=== PATIENT | female | born 1955 | race Caucasian/White ===

== ENCOUNTER 2016-10-30 07:13 | Emergency (ER) | payer OTHER ==
[~2016-10-30] VITALS: Ht 172.7 cm; Wt 115.7 kg
[~2016-10-30 07:13] MED LIST: AMLODIPINE BESYL5 M1 PO; ASPIR LOW81 MG PO; CIPROFLOXACIN HCL; CIPROFLOXACIN500 MG PO; COL100 PO; CYCLOBENZAPRINE5 MG PO; FLO4 PO; HYDROCHLOROTHIAZIDE; HYDROCODON; K10 PO; LAC PO; LIPITOR80 MG PO; LISINOPRIL40 MG PO; LOP50 PO; MAC100 PO; METOPROLOL SUCC25 M1 PO; MOTRIN800 MG PO; NITROSTAT0.4 MG SL; NOR10T PO; PHENAZOPYRIDIN200 M3 PO; PRI20 PO; ZES10 PO
[2016-10-30 07:55] LABS: CALCIUM 8.8 mg/dL (8.5-10.1); CARBON DIOXIDE 26.1 mmol/L (21-32); CREATININE SERUM 1.2 mg/dL (0.6-1.0); POTASSIUM SERUM 3.9 mmol/L (3.5-5.1)
[2016-10-30 08:00] LABS: ALBUMIN 3.7 g/dL (3.4-5.0); BILIRUBIN TOTAL 0.3 mg/dL (0.20-1.00); TOTAL PROTEIN, SERUM 7.5 g/dL (6.4-8.2)
[2016-10-30 08:05] LABS: BASOPHIL % 0.5 % (0-2); PLATELET COUNT 224 x10^3mcL (130-400)
[2016-10-30 08:13] LABS: RED CELL DISTRIBUTION WIDTH 14.6 % (11.5-14.5)
[2016-10-30 09:36] VITALS: BP 137/56
== END 2016-10-30 09:36 | disposition home or self-care (01) ==
LOC: ED 07:13
PROVIDERS: Emergency Medicine
DX: L03.116 Cellulitis of left lower limb (principal); I10 Essential (primary) hypertension; Z87.442 Personal history of urinary calculi; Z79.899 Other long term (current) drug therapy
CPT/HCPCS: J0295; J1885; J3490; Q0092

== ENCOUNTER 2019-10-03 04:09 | Emergency (ER) | payer OTHER ==
[~2019-10-03] VITALS: Ht 172.7 cm; Wt 115.7 kg
[2019-10-03 04:18] VITALS: Ht 172.7 cm; Wt 115.7 kg
[2019-10-03 06:21] VITALS: BP 143/49
== END 2019-10-03 06:22 | disposition home or self-care (01) ==
LOC: ED 04:09
DX: M25.551 Pain in right hip (principal); I10 Essential (primary) hypertension; Z98.890 Other specified postprocedural states
CPT/HCPCS: J1885; J2270; Q0162

== ENCOUNTER 2020-09-23 17:17 | Inpatient (IN) | payer OTHER ==
[~2020-09-23] VITALS: Ht 172.7 cm; Wt 115.7 kg
[2020-09-23 17:22] VITALS: Ht 172.7 cm; Wt 115.7 kg
[2020-09-23 18:35] LABS: UA SPECIFIC GRAVITY 1.025 (1.005-1.035); microscopic required? YES; urine erythrocyte TRACE (NEGATIVE)
[2020-09-23 18:37] LABS: BASOPHIL % 0.9 % (0.2-1.3); PLATELET COUNT 256 x10^3mcL (179-408)
[2020-09-23 18:38] LABS: RED CELL DISTRIBUTION WIDTH 14.9 % (12.3-17.7)
[2020-09-23 18:45] LABS: CALCIUM 9.5 mg/dL (8.5-10.1); CARBON DIOXIDE 24.5 mmol/L (21-32); CREATININE SERUM 1.2 mg/dL (0.6-1.0)
[2020-09-23 18:52] LABS: ALBUMIN 3.6 g/dL (3.4-5.0); BILIRUBIN TOTAL 0.3 mg/dL (0.20-1.00)
[2020-09-23 21:32] LABS: CHOLESTEROL/HDL RATIO 2.6
[2020-09-23 21:32] LABS: AMPHETAMINE QUAL UR NONE DETECTED (See below)
[2020-09-23 23:52] VITALS: BP 175/74
[2020-09-24] MEDS ORDERED: TOPROL XL25 MG PO (00:39)
[2020-09-24 05:43] VITALS: BP 140/51
[2020-09-24 07:23] LABS: BASOPHIL % 0.7 % (0.2-1.3); PLATELET COUNT 238 x10^3mcL (179-408)
[2020-09-24 07:33] LABS: CALCIUM 8.6 mg/dL (8.5-10.1); CARBON DIOXIDE 23.9 mmol/L (21-32); CREATININE SERUM 1.2 mg/dL (0.6-1.0); MAGNESIUM 1.6 mg/dL (1.8-2.4); PHOSPHOROUS 3.9 mg/dL (2.5-4.9); POTASSIUM SERUM 3.6 mmol/L (3.5-5.1)
[2020-09-24 07:34] LABS: RED CELL DISTRIBUTION WIDTH 14.6 % (12.3-17.7)
[2020-09-24 07:43] VITALS: BP 134/46
[2020-09-24 13:07] VITALS: BP 156/65
[2020-09-24 17:21] VITALS: BP 137/53
[2020-09-24 21:47] VITALS: BP 140/57
[2020-09-25 05:00] VITALS: BP 183/75
[2020-09-25 06:57] LABS: CALCIUM 9.4 mg/dL (8.5-10.1); CARBON DIOXIDE 24.3 mmol/L (21-32); CREATININE SERUM 1.1 mg/dL (0.6-1.0); MAGNESIUM 2.2 mg/dL (1.8-2.4); PHOSPHOROUS 2.7 mg/dL (2.5-4.9); POTASSIUM SERUM 4.4 mmol/L (3.5-5.1)
[2020-09-25 07:09] LABS: BASOPHIL % 0.2 % (0.2-1.3); PLATELET COUNT 245 x10^3mcL (179-408); RED CELL DISTRIBUTION WIDTH 14.9 % (12.3-17.7)
[2020-09-25 08:46] VITALS: BP 159/56
[2020-09-25 12:10] VITALS: BP 168/56
[2020-09-25 16:43] VITALS: BP 155/57
[2020-09-25 19:49] VITALS: BP 148/49
[2020-09-26 05:29] VITALS: BP 130/62
[2020-09-26 06:32] LABS: BASOPHIL % 0.4 % (0.2-1.3); PLATELET COUNT 223 x10^3mcL (179-408)
[2020-09-26 06:48] LABS: RED CELL DISTRIBUTION WIDTH 15.7 % (12.3-17.7)
[2020-09-26 06:57] LABS: CALCIUM 8.8 mg/dL (8.5-10.1); CARBON DIOXIDE 20.7 mmol/L (21-32); CREATININE SERUM 1.1 mg/dL (0.6-1.0); POTASSIUM SERUM 4.1 mmol/L (3.5-5.1)
[2020-09-26 08:33] VITALS: BP 153/54
[2020-09-26 11:30] VITALS: BP 104/50; BP 160/55
[2020-09-26 16:53] VITALS: BP 167/65
[2020-09-26 20:20] VITALS: BP 167/64
[2020-09-27 05:27] VITALS: BP 166/65
[2020-09-27 06:21] LABS: CALCIUM 8.5 mg/dL (8.5-10.1); CARBON DIOXIDE 22.6 mmol/L (21-32); CREATININE SERUM 1.1 mg/dL (0.6-1.0); POTASSIUM SERUM 3.8 mmol/L (3.5-5.1)
[2020-09-27 06:28] LABS: BASOPHIL % 0.8 % (0.2-1.3); PLATELET COUNT 197 x10^3mcL (179-408)
[2020-09-27 06:53] LABS: RED CELL DISTRIBUTION WIDTH 15.2 % (12.3-17.7)
[2020-09-27 08:26] VITALS: BP 169/63
[2020-09-27] MEDS ORDERED: CARVEDILOL12.5 M1 PO (11:08)
[2020-09-27] MEDS ORDERED: NOR5 PO (11:08)
[2020-09-27] MEDS ORDERED: ECO81 PO (11:08)
[2020-09-27] MEDS ORDERED: ZES20 PO (11:08)
[2020-09-27] MEDS ORDERED: PRI20 PO (11:09)
[2020-09-27] MEDS ORDERED: CIP500 PO (11:09)
[2020-09-27 11:59] VITALS: BP 162/67
[2020-09-27 13:43] VITALS: BP 169/65
== END 2020-09-27 15:10 | disposition home or self-care (01) | DRG 690 ==
LOC: ED 17:17 → DU 20:42 → MU 20:42 → DU 23:16 → MU 23:18 → DU 09-26 04:35
PROVIDERS: Emergency Medicine; ADMIT Internal Medicine; ATTEND Internal Medicine
DX: N39.0 Urinary tract infection, site not specified (principal); I16.1 Hypertensive emergency; Z20.822 Contact with and (suspected) exposure to COVID-19; I10 Essential (primary) hypertension; R32 Unspecified urinary incontinence; Z83.3 Family history of diabetes mellitus; Z82.49 Family history of ischemic heart disease and other diseases of the circulatory system; E66.01 Morbid (severe) obesity due to excess calories; Z71.3 Dietary counseling and surveillance; Z68.38 Body mass index [BMI] 38.0-38.9, adult; B96.20 Unspecified Escherichia coli [E. coli] as the cause of diseases classified elsewhere
CPT/HCPCS: 97116-GP; 97530-GP; G0378; J0360; J0696; J1100; J2060; J2270; J2405; J3475; J7030; J7060; Q9967

== ENCOUNTER 2020-10-02 03:00 | Emergency (ER) | payer OTHER ==
[~2020-10-02 03:00] MED LIST changes: +CARVEDILOL12.5 M1 PO; +CIP500 PO; +ECO81 PO; +NOR5 PO; +TOPROL XL25 MG PO; +ZES20 PO
[2020-10-02 03:08] VITALS: Ht 172.7 cm
[2020-10-02] MEDS ORDERED: NAPROSYN500 MG PO (03:48)
[2020-10-02 03:57] VITALS: BP 186/70
== END 2020-10-02 03:57 | disposition home or self-care (01) ==
LOC: ED 03:00
DX: M72.2 Plantar fascial fibromatosis (principal); I10 Essential (primary) hypertension; Z87.442 Personal history of urinary calculi